=== PATIENT | male | born 1950 | race Two or more races ===

== ENCOUNTER 2017-04-07 12:34 | Outpatient (CLI) | payer BC ==
--- NOTE | 2017-04-07 13:41 | Diagnostic Imaging Report ---
Indication: COUGH Technique: Two views of the chest Comparison: none Findings: Band of atelectasis or scarring is seen in the left lung base. Lungs and pleural spaces otherwise clear. The heart size is normal Impression: No acute process
== END 2017-04-07 14:34 | disposition home or self-care (01) ==
LOC: RAD 12:34
DX: R05 Cough (principal)
CPT/HCPCS: 71020